=== PATIENT | female | born 1980 | race Caucasian/White ===

== ENCOUNTER 2020-12-29 17:35 | Observation (INO) ==
[2020-12-29 17:50] VITALS: BMI 28.3
[2020-12-29] MEDS ORDERED: NS 1000 ML 1,000 ML IV ONE (19:04)
[2020-12-29] MEDS ORDERED: NS 1000 ML 1,000 ML ONE (19:16)
--- NOTE | 2020-12-29 19:35 | DR.GENAD ---
HPI Time Seen Time Seen by Provider: 12/29/20 19:03 PCP Primary Care Physician: Complaint/Symptoms Chief Complaint Doctors Comments: 40 y/o female, has been ill for the past 10 days with cough/congestion. Family with covid, pt was initially negative, but turned positive several days ago. Has had worsening shortness of breath past 2 days. Having productive cough, fever/chills. Dyspnea worse with exertion. Denies chest pain, N/V. Chief Complaint:: PT STATES SHE WAS SENT HERE TO BE SEEN IN ER PER DR. CISNEROS D/T HAVING COVID PNEUMONIA. PT ALSO STATES SHE TESTED POSITIVE FOR COVID ON 12-23-20. COVID-19 Coronavirus risk:travel/contact w/high risk person: Yes Has patient experienced Coronavirus symptoms: Yes Coronavirus symptoms experienced: Coughing and Shortness of Breath Nurses notes reviewed Nurses Notes Review: Yes Source History Provided: Patient Mode of Arrival Mode of Arrival: Ambulatory Timing Onset of Chief Complaint: 12/19/20 Severity Severity: Moderate Modifying Factors Worsens:: exertion Improves:: nothing PMH PMH Past Medical History: No Past Surgical History: No Family History History of Family Medical Conditions: Yes Family Medical History: Hypertension Travel Risk Coronavirus risk:travel/contact w/high risk person: Yes Has patient experienced Coronavirus symptoms: Yes Coronavirus symptoms experienced: Coughing and Shortness of Breath Infectious screening Have you traveled outside the country in the last 6 months?: No Isolation: Airborn/Negative Pressure ROS Review of Systems Constitutional: Chills, Fever and Weakness Eyes: No Symptoms Reported ENTM: Nose Congestion Respiratoy: Productive Cough and Short of Breath Cardiovascular: No Symptoms Reported Gastrointestinal/Abdominal: No Symptoms Reported Genitourinary: No Symptoms Reported Neurological: Headache and Weakness Musculoskeletal: Muscle Pain Integumentary: No Symptoms Reported Hematologic/Lymphatic: No Symptoms Reported Endocrine: No Symptoms Reported Psychiatric: No Symptoms Reported All Other Systems: Reviewed and Negative PE Vital Signs Vitals: Temperature 98 F Pulse Rate [Left] 86 Pulse Rate 102 Respiratory Rate 16 Blood Pressure [Left Arm] 121/73 Blood Pressure 137/81 O2 Sat by Pulse Oximetry 97 General Limitations: No Limitations General Appearance: Alert and In Distress (mild, worse with speaking.) Eyes Eye exam: Normal Appearance ENT ENT Exam: Normal Exam Nose Exam: Normal Nose Exam Throat Exam: Normal Inspection Neck Neck Exam: Normal Inspection and Full ROM Respiratory Respiratory Exam: Normal Lung Sounds Bilat and Other (decreased breath sounds at the bases.) Cardiovascular Cardiovascular Exam: Regular Rate, Normal Rhythm and Normal Heart Sounds Abdominal Exam Abdominal Exam: Normal Inspection; negative Tenderness Extremities Extremities Exam: Normal Inspection and Full ROM; negative Edema Back Back Exam: Normal Inspection Neurologic Neurological Exam: Alert, Oriented X3 and CN II-XII Intact; negative Motor Sensory Deficit Psychiatric Psychiatric Exam: Normal Affect Skin Skin Exam: Warm and Dry MDM Differential Diagnosis Differential Diagnosis: Covid, pneumonia, bronchitis, PE COURSE Treatment Treatment: Pt with + covid dx several days ago, having worsening dyspnea. W/u initiated. 2118 - labs acceptable, ABG acceptable. CXR c/w developing pneumonia. Pt dyspneic with talking, states worse with ambulation. Has been treated with steroids x 2 rounds, ivermictin x 2 rounds and on doxycycline. Will admit for observation admission, discussed with Dr. Jones, accepts the admission. ROR Labs Reviewed Laboratory Results Reviewed?: Yes Result Diagrams: 12/29/20 19:10 12/29/20 19:10 Laboratory: WBC 5.5 X10^3/uL (3.6-10.0) 12/29/20 19:10 RBC 4.64 X10^6/uL (3.5-5.4) 12/29/20 19:10 Hgb 13.8 g/dL (12.0-16.0) 12/29/20 19:10 Hct 40.2 % (36.0-47.0) 12/29/20 19:10 MCV 86.7 fL (80.0-100.0) 12/29/20 19:10 MCH 29.8 pg (27.0-34.0) 12/29/20 19:10 MCHC 34.4 g/dL (33.0-35.0) 12/29/20 19:10 RDW 13.8 % (11.6-16.5) 12/29/20 19:10 Plt Count 220 X10^3/uL (150.0-450.0) 12/29/20 19:10 MPV 7.7 fL (7.4-11.0) 12/29/20 19:10 Neut % (Auto) 77.8 % (42.0-75.0) H 12/29/20 19:10 Lymph % (Auto) 13.5 % (21.0-51.0) L 12/29/20 19:10 Bledsoe % (Auto) 8.4 % (0.0-13.0) 12/29/20 19:10 Eos % (Auto) 0.0 % (0.9-2.9) L 12/29/20 19:10 Baso % (Auto) 0.3 % (0.2-1.0) 12/29/20 19:10 Neut # (Auto) 4.3 x10^3/uL (2.2-4.8) 12/29/20 19:10 Lymph # (Auto) 0.7 X10^3/uL (1.3-2.9) L 12/29/20 19:10 Bledsoe # (Auto) 0.5 x10^3/uL (0.3-0.8) 12/29/20 19:10 Eos # (Auto) 0.0 x10^3/uL (0.0-0.2) 12/29/20 19:10 Baso # (Auto) 0.0 X10^3/uL (0.0-0.1) 12/29/20 19:10 Absolute Nucleated RBC 0.1 /100WBC 12/29/20 19:10 Sample Site Rra 12/29/20 19:55 ABG pH 7.470 (7.35-7.45) H 12/29/20 19:55 ABG pCO2 38.0 mmHg (35.0-45.0) 12/29/20 19:55 ABG pO2 85.0 mmHg (80.0-100.0) 12/29/20 19:55 ABG HCO3 27.7 mmol/L (22-26) H 12/29/20 19:55 ABG O2 Saturation 97.0 % (90-100) 12/29/20 19:55 ABG Base Excess 3.9 mmol/L (-2.0-2.0) H 12/29/20 19:55 John Test Pos 12/29/20 19:55 A-a Gradient 17.0 mmHg 12/29/20 19:55 FiO2 21.0 12/29/20 19:55 Blood Gas Comments Gay well mts/sk 12/29/20 19:55 Sodium 145 mmol/L (136-145) 12/29/20 19:10 Corrected Sodium 146 mmol/L (136-145) H 12/29/20 19:10 Potassium 3.7 mmol/L (3.5-5.1) 12/29/20 19:10 Chloride 108 mmol/L (98-107) H 12/29/20 19:10 Carbon Dioxide 27.0 mmol/L (21-32) 12/29/20 19:10 BUN 10 mg/dL (7-18) 12/29/20 19:10 Creatinine 0.70 mg/dL (0.55-1.02) 12/29/20 19:10 Est GFR (MDRD) Af Amer > 60 (>60) 12/29/20 19:10 Est GFR (MDRD) Non-Af > 60 (>60) 12/29/20 19:10 Glucose 122 mg/dL (65-99) H 12/29/20 19:10 Lactic Acid 1.5 mmol/L (0.4-2.0) 12/29/20 19:10 Calcium 8.5 mg/dL (8.5-10.1) 12/29/20 19:10 Corrected Calcium 9.1 mg/dL (8.5-10.1) 12/29/20 19:10 Total Bilirubin 0.30 mg/dL (0.2-1.0) 12/29/20 19:10 AST 17 Units/L (15-37) 12/29/20 19:10 ALT 19 Units/L (12-78) 12/29/20 19:10 Alkaline Phosphatase 77 Units/L (46-116) 12/29/20 19:10 Creatine Kinase 50 Units/L (26-192) 12/29/20 19:10 CK-MB (CK-2) < 1.0 ng/mL (0-4.0) 12/29/20 19:10 CK/CKMB % Calc 2.0 % (<4) 12/29/20 19:10 Troponin I < 0.02 ng/mL (0-1.5) 12/29/20 19:10 Total Protein 7.7 g/dL (6.4-8.2) 12/29/20 19:10 Albumin 3.3 g/dL (3.4-5.0) L 12/29/20 19:10 Globulin 4.4 g/dL (2.5-4.5) 12/29/20 19:10 Albumin/Globulin Ratio 0.8 Ratio (1.1-2.1) L 12/29/20 19:10 XRAY XRAY Interpreted by: Radiologist X-ray Results: mild developing interstitial opacifications, c/w developing viral pneumonia,. Opioid Opioid Risk Tool Age (Nigel box if 16-45): No History of Preadolescent Sexual Abuse: No Total: 0 Total Score Risk Category: Low Risk Copyright: Juan M CRONIN predicting aberrant behaviors Diagnosis Discharge Problem: Pneumonia due to COVID-19 virus
[2020-12-29 19:37] LABS: BASOPHILS % (AUTO) 0.3 % (0.2-1.0); HEMATOCRIT 40.2 % (36.0-47.0); HEMOGLOBIN 13.8 g/dL (12.0-16.0); LYMPHOCYTES # (AUTO) 0.7 X10^3/uL (1.3-2.9); LYMPHOCYTES % (AUTO) 13.5 % (21.0-51.0); MEAN CORPUSCULAR HEMOGLOBIN 29.8 pg (27.0-34.0); MEAN CORPUSCULAR HGB CONC 34.4 g/dL (33.0-35.0); MEAN CORPUSCULAR VOLUME 86.7 fL (80.0-100.0); MEAN PLATELET VOLUME 7.7 fL (7.4-11.0); MONOCYTES # (AUTO) 0.5 x10^3/uL (0.3-0.8); MONOCYTES % (AUTO) 8.4 % (0.0-13.0); NEUTROPHILS # (AUTO) 4.3 x10^3/uL (2.2-4.8); NEUTROPHILS % (AUTO) 77.8 % (42.0-75.0); PLATELET COUNT 220 X10^3/uL (150.0-450.0); RED BLOOD COUNT 4.64 X10^6/uL (3.5-5.4); RED CELL DISTRIBUTION WIDTH 13.8 % (11.6-16.5); WHITE BLOOD COUNT 5.5 X10^3/uL (3.6-10.0)
[2020-12-29 19:55] LABS: LACTIC ACID 1.5 mmol/L (0.4-2.0)
[2020-12-29 19:58] LABS: ABG ALLEN TEST POS; ABG BASE EXCESS 3.9 mmol/L (-2.0-2.0); ABG HCO3 27.7 mmol/L (22-26)
[2020-12-29 20:13] LABS: ALANINE AMINOTRANSFERASE 19 Units/L (12-78); ALBUMIN 3.3 g/dL (3.4-5.0); ALKALINE PHOSPHATASE 77 Units/L (46-116); ASPARTATE AMINO TRANSFERASE 17 Units/L (15-37); BLOOD UREA NITROGEN 10 mg/dL (7-18); CALCIUM 8.5 mg/dL (8.5-10.1); CHLORIDE 108 mmol/L (98-107); COR CA(FOR HYPOALB) 9.1 mg/dL (8.5-10.1); COR NA(FOR HYPERGLY) 146 mmol/L (136-145); CREATINE KINASE 50 Units/L (26-192); CREATINE KINASE MB < 1.0 ng/mL (0-4.0); SODIUM 145 mmol/L (136-145); TOTAL PROTEIN 7.7 g/dL (6.4-8.2); TROPONIN I < 0.02 ng/mL (0-1.5); eGFR NON BLACK RACES > 60 (>60)
--- NOTE | 2020-12-29 20:36 | RAD ---
HISTORY:COVID-19 pneumoniaStudy: Single view chestComparison:NoneFindings:There are mild interstitial opacities at the lung bases. No effusion or pneumothorax identified.Cardiac and mediastinal contours are within normal limits .The soft tissues are intact .IMPRESSION:Mild bibasilar interstitial opacities for which developing pneumonia is not excluded. Continued radiographic follow-up recommended.Electronically signed by: MIGUEL ANGEL GREY (Dec 29, 2020 20:34:42)
[2020-12-30] MEDS ORDERED: NS 1000 ML 1,000 ML ONE ×3 (00:38→09:41)
[2020-12-30] MEDS: NS 1000 ML 1,000 ML IV SCH ×3 (00:40→00:48)
[2020-12-30] MEDS ORDERED: NS 100 ML IV 100 ML ONE (02:33)
[2020-12-30] MEDS ORDERED: ASCORBIC ACID INJ MULTI-DOSE VIAL IV ONE (02:35)
[2020-12-30] MEDS: ASCORBIC ACID INJ MULTI-DOSE VIAL 1,500 MG in NS 100 ML IV 100 ML IV SCH ×2 (02:48→13:20)
[2020-12-30] MEDS ORDERED: SOLU-Medrol 40 MG VIAL ONE ×2 (05:00→14:25)
[2020-12-30 05:18] LABS: BASOPHILS # (AUTO) 0.1 X10^3/uL (0.0-0.1); BASOPHILS % (AUTO) 1.6 % (0.2-1.0); EOSINOPHILS % (AUTO) 0.2 % (0.9-2.9); HEMOGLOBIN 12.5 g/dL (12.0-16.0); LYMPHOCYTES # (AUTO) 1.1 X10^3/uL (1.3-2.9); LYMPHOCYTES % (AUTO) 26.8 % (21.0-51.0); MEAN CORPUSCULAR HEMOGLOBIN 29.5 pg (27.0-34.0); MEAN CORPUSCULAR HGB CONC 33.7 g/dL (33.0-35.0); MEAN CORPUSCULAR VOLUME 87.6 fL (80.0-100.0); MEAN PLATELET VOLUME 7.8 fL (7.4-11.0); MONOCYTES # (AUTO) 0.4 x10^3/uL (0.3-0.8); NEUTROPHILS # (AUTO) 2.5 x10^3/uL (2.2-4.8); NEUTROPHILS % (AUTO) 61.4 % (42.0-75.0); PLATELET COUNT 190 X10^3/uL (150.0-450.0); RED BLOOD COUNT 4.22 X10^6/uL (3.5-5.4); RED CELL DISTRIBUTION WIDTH 13.5 % (11.6-16.5)
[2020-12-30] MEDS: SOLU-Medrol 40 MG VIAL IVP SCH ×2 (05:50→15:42)
[2020-12-30 06:32] LABS: ALANINE AMINOTRANSFERASE 19 Units/L (12-78); ALBUMIN 2.9 g/dL (3.4-5.0); ALKALINE PHOSPHATASE 61 Units/L (46-116); ASPARTATE AMINO TRANSFERASE 15 Units/L (15-37); BLOOD UREA NITROGEN 9 mg/dL (7-18); CARBON DIOXIDE 29.3 mmol/L (21-32); CHLORIDE 107 mmol/L (98-107); COR CA(FOR HYPOALB) 8.9 mg/dL (8.5-10.1); CREATININE 0.67 mg/dL (0.55-1.02); SODIUM 144 mmol/L (136-145); TOTAL PROTEIN 6.6 g/dL (6.4-8.2); eGFR NON BLACK RACES > 60 (>60)
[2020-12-30] MEDS ORDERED: VIBRAMYCIN PO ONE (08:00)
[2020-12-30] MEDS ORDERED: ZINC SULFATE ONE (08:01)
[2020-12-30] MEDS ORDERED: PEPCID TAB 40 MG ONE (08:01)
[2020-12-30] MEDS ORDERED: VITAMIN D3 125 mcg (5,000 UNITS) ONE (08:01)
[2020-12-30] MEDS ORDERED: LOVENOX INJ 30 MG SYR SC ONE (08:01)
[2020-12-30] MEDS ORDERED: LOVENOX INJ 30 MG SYR SC SCH (09:00)
[2020-12-30] MEDS ORDERED: PEPCID TAB 40 MG PO SCH (09:00)
[2020-12-30] MEDS ORDERED: PULMICORT NEB TX 0.5 MG NEB SCH (09:00)
[2020-12-30] MEDS ORDERED: VITAMIN D (1.25MG) PO SCH (09:00)
[2020-12-30] MEDS ORDERED: ZINC SULFATE PO SCH (09:00)
[2020-12-30] MEDS ORDERED: VIBRAMYCIN PO SCH (09:00)
[2020-12-30] MEDS ORDERED: VITAMIN A PO SCH ×2 (09:00→10:00)
[2020-12-30 10:47] LABS: ABG ALLEN TEST POS; ABG BASE EXCESS 3.7 mmol/L (-2.0-2.0); ABG HCO3 27.7 mmol/L (22-26)
--- NOTE | 2020-12-30 13:55 | DR.H&P ---
H&P - History & Physical for Day of: H&P Date: 12/30/20 - Chief Complaint Chief Complaint: COVID 19+, CCC, FEVER - History of Present Illness History of Present Illness: 40 y/o female, has been ill for the past 10 days with cough/congestion. Family with covid, pt was initially negative, but turned positive several days ago. Has had worsening shortness of breath past 2 days. Having productive cough, fever/chills. Dyspnea worse with exertion. Denies chest pain, N/V. - Past Medical History Past Medical History: denies: Coronary Artery Disease, Diabetes, Hypertension Additional Medical History: HX OF PREVIOUS RESPIRATORY FAILURE REQUIRING MECHANICAL VENTILATION - Past Surgical History Surgical History: Hysterectomy - Family History Family Medical History: Hypertension - Social History Alcohol Use: None Drug Use: None - Medications Home Medications: codeine Allergy (Severe, Verified 12/29/20 17:52) RASH Penicillins Allergy (Severe, Verified 12/29/20 17:52) RASH CONTINUE taking the following medications doxycycline monohydrate 100 mg PO BID 12/30/20 [History] methylprednisolone See Rx Instructions .ROUTE .COMPLEX 12/30/20 [History] - Review of Systems Constitutional: Fever, Chills, Malaise Eyes: No Symptoms Reported ENT: No Symptoms Reported Respiratory: Cough, Shortness of Breath, Wheezing Cardiovascular: No Symptoms Reported Gastrointestinal: Nausea Genitourinary: No Symptoms Reported Musculoskeletal: No Symptoms Reported Skin: No Symptoms Reported Neurological: No Symptoms Reported - Physical Exam Vital Signs: Temperature 97.6 F Pulse Rate [Left] 73 Pulse Rate 102 Respiratory Rate 20 Blood Pressure [Left Arm] 133/76 Blood Pressure 137/81 O2 Sat by Pulse Oximetry 96 Oriented: Normal Eyes: Normal Ear: Normal Nose: Normal Throat: Normal Respiratory: RLL Diminished, LLL Diminished Cardiovascular: Normal : Normal Auscultation: Bowel Sounds: Normal Palpation: Normal Tenderness: Normal Skin: Normal Musculoskeletal: Normal Psychiatric: Anxiety Affect: Anxious Speech Pattern: Clear, Appropriate - Assessment/Plan (1) Pneumonia due to COVID-19 virus Status: Acute Plan: ADMIT, COVID ISOLATION UNIT. IV ATBX, SOLU MEDROL, IV HYDRATION. PRN SUPPLEMENTAL O2, DVT PROPHYLAXIS, IVERMECTIN. RESP THERAPY, AM ABG, AM CXR. BP AND CARDIAC MONITORING - Allergies Allergies/Adverse Reactions: Allergies Allergy/AdvReac Type Severity Reaction Status Date / Time codeine Allergy Severe RASH Verified 12/29/20 17:52 Penicillins Allergy Severe RASH Verified 12/29/20 17:52
[2020-12-30] MEDS ORDERED: REGEN-COV VIAL 10 ML, DRUG FILTER EXTENSION SET * 1 EA in NS 100 ML IV 100 ML IV NR ×2 (14:30)
[2020-12-30] MEDS ORDERED: SOLU-Medrol 125 MG VIAL IVP NR (15:00)
[2020-12-30] MEDS ORDERED: TYLENOL 325 MG TAB PO NR (15:00)
[2020-12-30] MEDS ORDERED: NS 100 ML IV + SPIKE MINIBAG* 100 ML IV ONE (15:25)
[2020-12-30] MEDS ORDERED: TYLENOL 325 MG TAB PO ONE (15:25)
[2020-12-30 17:39] VITALS: BP 137/79
[2021-01-01] MEDS ORDERED: VITAMIN D3 125 mcg (5,000 UNITS) PO SCH (09:00)
== END 2020-12-30 17:35 | disposition home or self-care (01) ==
LOC: ER 17:40 → OBS 17:40
PROVIDERS: ADMIT Internal Medicine; ATTEND Internal Medicine
DX: U07.1 COVID-19; J12.81 Pneumonia due to SARS-associated coronavirus